=== PATIENT | male | born 1970 | race Caucasian/White ===

== ENCOUNTER → 2018-06-24 | Emergency (ER) | payer OTHER ==
[~2018-06-24] VITALS: Ht 175.3 cm; Wt 102.1 kg
[~2018-06-24] MED LIST: ALLEGRA ALLERG180 MG PO; AMOX1TAB12 PO; CATAFLAM50 MG PO; CLONAZEPAM1 MG PO; INTESTINEX1 CA1 PO; KETO10TA2 PO; LOTRISONE CREAM45 GM TP; MOBIC15 MG PO; NASONEX17 GM NS; NORFLEX100MG PO; PERCOCET 5/3251 TAB PO; SKELAXIN800 MG PO
== END | disposition home or self-care (01) ==
LOC: ER 21:14
DX: F41.9 Anxiety disorder, unspecified (principal); T40.5X5A Adverse effect of cocaine, initial encounter; F32.9 Major depressive disorder, single episode, unspecified